=== PATIENT | female | born 1980 | race Caucasian/White ===

== ENCOUNTER 2018-12-12 19:43 | Emergency (ER) | payer MEDICAID ==
[~2018-12-12] VITALS: Ht 152.4 cm; Wt 46.0 kg
[2018-12-12] MEDS ORDERED: NAPROXEN 375MG TABLET PO ONE (23:15)
[2018-12-12 23:46] LABS: BASOPHILS % 0.6 % (0.0-2.0); EOSINOPHILS % 1.7 % (0.0-5.0); HEMATOCRIT. 31.8 % (36.0-48.0); HEMOGLOBIN. 10.8 g/dL (12.0-16.0); MEAN CORPUSCULAR HEMOGLOBIN 28.1 pg (28.0-32.0); MEAN CORPUSCULAR VOLUME 82.5 fL (81.0-99.0); MEAN PLATELET VOLUME 8.4 fl (7.4-10.4); MONOCYTES % 9.8 % (2.0-8.0); NEUTROPHILS % 52.9 % (40.0-76.0); PLATELET 215 x1000/uL (130-400); RED BLOOD CELL COUNT 3.86 mill/uL (4.2-5.4); RED CELL DISTRIBUTION WIDTH 13.9 % (11.6-14.6)
[2018-12-12 23:56] LABS: CHLORIDE 107 mEq/L (98-107)
[2018-12-13 00:09] LABS: HCG SCREEN NEGATIVE
[2018-12-13 01:40] VITALS: BP 100/64
== END 2018-12-13 01:46 | disposition home or self-care (01) ==
LOC: ER 20:43
DX: R19.7 Diarrhea, unspecified (principal)
CPT/HCPCS: 36415; 81025; 82270; 84703; 99283